=== PATIENT | female | born 1945 | race Caucasian/White ===

== ENCOUNTER 2017-11-30 14:02 | Emergency (ER) | payer MEDICARE, OTHER ==
--- NOTE | 2017-11-30 14:06 | ER Report ---
History and Physical Time Seen By MD: 14:06 (BRIAN MNÉDEZ MD) HPI/ROS CHIEF COMPLAINT: Left shoulder; thoracic and lumbar pain HISTORY OF PRESENT ILLNESS: Patient is a 72-year-old female who presents with complaint of left shoulder pain as well as lower thoracic and lumbar pain after a fall today. Patient states she was at her cabin in [facility]. She was trying to get her to dog to come inside. She states that she was wearing bedroom slippers and slipped on the kitchen floor. She landed on her abducted left shoulder. She has pain with range of motion and pain to the proximal humerus. She also states that she felt her "spine slip out of place". Is complaining of thoracic and lumbar pain. She apparently has a history of grade 3 spondylolisthesis. She denies any numbness or tingling. Denies striking her head or any neck pain. REVIEW OF SYSTEMS Respiratory: No cough, no dyspnea. Cardiovascular: No chest pain, no palpitations. Gastrointestinal: No vomiting, no abdominal pain. Musculoskeletal: thoracic/lumbar back pain; right shoulder pain (BRIAN MÉNDEZ MD) Allergies: Coded Allergies: No Known Drug Allergies (Unverified , 11/30/17) Home Meds Active Scripts Hydrocodone Bit/Acetaminophen (NORCO 5-325 TABLET) 1 Each Tablet, 1 EACH PO Q4- 6H Y for PAIN, #21 TAB Prov:AUNG RBICE DO 11/30/17 Past Medical/Surgical History Grade 3 lumbar spondylolisthesis. (BRIAN MÉNDEZ MD) Constitutional Vital Sign - Last 24 Hours 11/30/17 14:15 Temp 97.6 Pulse 73 Resp 16 B/P (MAP) 139/57 Pulse Ox 94 (AUNG BRICE V DO) Physical Exam General Appearance: The patient is alert, has no immediate need for airway protection and no current signs of toxicity. Eyes: Pupils equal and round no injection. Respiratory: Chest is non tender, lungs are clear to auscultation. Cardiac: regular rate and rhythm Gastrointestinal: Abdomen is soft and non tender, no masses, bowel sounds normal. Musculoskeletal: Neck: Neck is supple and non tender. Extremities: Patient was noted to have painless active range of motion of both shoulders and particularly the left shoulder. When patient was sitting on the gurney she was using both arms to prop herself up and hold off her thorax seemingly without pain. Initially palpated the clavicle humerus and elbow seemingly without discomfort. When I began to passively range the shoulder she complained of severe pain to the proximal left humerus and acromioclavicular joint. She also is complaining of thoracic and lumbar pain. Palpation of the spinous processes from cervical through lumbar spine revealed no acute tenderness or step-off. Skin: No rashes or lesions. (BRIAN MÉNDEZ MD) Medical Decision Making Data Points Laboratory Hematology Test 11/30/17 14:18 Urine Color Yellow Urine Clarity Slightly-cloudy Urine pH 6.0 pH (4.8-9.5) Urine Specific [place] 1.011 Urine Protein Negative mg/dL (NEGATIVE) Urine Glucose (UA) Negative mg/dL (NEGATIVE) Urine Ketones Negative mg/dL (NEGATIVE) Urine Blood Negative (NEGATIVE) Urine Nitrite Negative (NEGATIVE) Urine Bilirubin Negative (NEGATIVE) Urine Urobilinogen Negative mg/dL (0.2-1.9) Urine Leukocyte Esterase Moderate (NEGATIVE) Urine RBC <1 /HPF (0-2/HPF) Urine WBC 9 /HPF (0-5/HPF) Urine Squamous Epithelial Cells Many /LPF (</=FEW) Urine Bacteria Few /HPF (NONE-FEW) Urine Mucus None /HPF (NONE-FEW) Chemistry Test 11/30/17 14:18 Urine Color Yellow Urine Clarity Slightly-cloudy Urine pH 6.0 pH (4.8-9.5) Urine Specific Marion 1.011 Urine Protein Negative mg/dL (NEGATIVE) Urine Glucose (UA) Negative mg/dL (NEGATIVE) Urine Ketones Negative mg/dL (NEGATIVE) Urine Blood Negative (NEGATIVE) Urine Nitrite Negative (NEGATIVE) Urine Bilirubin Negative (NEGATIVE) Urine Urobilinogen Negative mg/dL (0.2-1.9) Urine Leukocyte Esterase Moderate (NEGATIVE) Urine RBC <1 /HPF (0-2/HPF) Urine WBC 9 /HPF (0-5/HPF) Urine Squamous Epithelial Cells Many /LPF (</=FEW) Urine Bacteria Few /HPF (NONE-FEW) Urine Mucus None /HPF (NONE-FEW) Urinalysis Test 11/30/17 14:18 Urine Color Yellow Urine Clarity Slightly-cloudy Urine pH 6.0 pH (4.8-9.5) Urine Specific Marion 1.011 Urine Protein Negative mg/dL (NEGATIVE) Urine Glucose (UA) Negative mg/dL (NEGATIVE) Urine Ketones Negative mg/dL (NEGATIVE) Urine Blood Negative (NEGATIVE) Urine Nitrite Negative (NEGATIVE) Urine Bilirubin Negative (NEGATIVE) Urine Urobilinogen Negative mg/dL (0.2-1.9) Urine Leukocyte Esterase Moderate (NEGATIVE) Urine RBC <1 /HPF (0-2/HPF) Urine WBC 9 /HPF (0-5/HPF) Urine Squamous Epithelial Cells Many /LPF (</=FEW) Urine Bacteria Few /HPF (NONE-FEW) Urine Mucus None /HPF (NONE-FEW) (AUNG BRICE DO) EKG/Imaging Imaging + left compacted humerus fx. severe Spondolithesis of lumbar spine. (AUNG BRICE DO) ED Course/Re-evaluation ED Course 11/30/2017 2:25:38 pm plan at this time will be x-ray of the left shoulder, left clavicle, thoracic and lumbar spines. We will give IM Toradol for pain. Decision to Disposition Date: Nov 30, 2017 Decision to Disposition Time: 17:00 (BRIAN MÉNDEZ MD) ED Course 11/30/2017 4:37:02 pm Pt signed out to me pending official reading of xrays. Reviewed xrays with pt. Pt was aware of the spondolithesis and arthritis. States it was a grade 3-4 on prior exams. Pt has also fx her left humerus in the past but radiologist is calling it new and pt does have pain. Will place in imobilizer. Will also make a copy of her images since she wants to follow up with orthopedics in either [place] or [place]. Pt is also requesting a urine to be sent however she is currently a febrile and has no dysuria. 11/30/2017 5:10:55 pm PTs urine is back and is contaminated by many squamous cells. Pt is asymptomatic so I do not want to treat on contaminated urine. Spoke with pt and at length. She states she did not use the wipes to clean her area when obtaining the specimen "i was in too much pain with the shoulder". Offered to recollect a specimen but pt states she would like to go home now and can follow up as outpt. "i dont have any symptoms from my urine. I just thought i would get it checked since the nurse collected it when i arrived". Told to follow up [facility] pcp if develops dysuria or fevers. Decision to Disposition Date: Nov 30, 2017 Decision to Disposition Time: 17:13 (AUNG BRICE DO) Depart Departure Latest Vital Signs Vital Signs Date Time Temp Pulse Resp B/P (MAP) Pulse Ox O2 Delivery O2 Flow Rate FiO2 11/30/17 14:15 97.6 73 16 139/57 94 (AUNG BRICE DO) Impression: Primary Impression: Humerus lesion, left Additional Impressions: Spondylisthesis Osteoarthritis Condition: Condition Unchanged Disposition: HOME OR SELF-CARE Referrals: [facility] New Scripts Hydrocodone Bit/Acetaminophen (NORCO 5-325 TABLET) 1 Each Tablet 1 EACH PO Q4-6H Y for PAIN, #21 TAB Prov: AUNG BRICE DO 11/30/17 Patient Instructions: Proximal Humerus Fracture (GEN), Spondylolisthesis (GEN) Additional Instructions: Your xrays today show an new fracture of your proximal humerus. You also have significant spondylotic changes in your lumbar spine and diffuse arthritis. Keep your arm in the splint until you are seen by orthopedics. Motrin (advil, ibuprofen) 400mg every 6 hours as needed for pain Hydrocodone with tylenol 1-2 pills every 4-6 hours as needed for pain. Problem Qualifiers Additional Impressions: Spondylisthesis Spinal region: lumbar Qualified Codes: M43.16 - Spondylolisthesis, lumbar region Osteoarthritis Osteoarthritis location: multiple joints Osteoarthritis type: primary Qualified Codes: M15.0 - Primary generalized (osteo)arthritis BRIAN MÉNDEZ MD Nov 30, 2017 14:06 AUNG BRICE DO Nov 30, 2017 16:38
[2017-11-30 14:15] VITALS: BP 139/57
[2017-11-30] MEDS ORDERED: KETOROLAC 60 MG/2 ML VIAL IM ONE (14:15)
--- NOTE | 2017-11-30 15:58 | RADIOLOGY IMAGING REPORT ---
FACILITY: [facility] PATIENT NAME: Susan Nguyen : 1945 MR: [id number] V: [id number] EXAM DATE: ORDERING PHYSICIAN: BRIAN MÉNDEZ TECHNOLOGIST: Location: [facility] Patient: Susan Nguyen : 1945 Visit/Account:[id number] Date of Sevice: 11/30/2017 Two views left shoulder Indication: Fall Comparison: Unavailable Findings: There is a mildly impacted fracture through the surgical neck left humerus. Fracture lucency extends out through the region of the greater tuberosity. Alignment is anatomic at the glenohumeral joint. The ribs and clavicles are unremarkable. IMPRESSION: 1. Mildly impacted fracture involving the surgical neck and head left humerus. Report Dictated By: Carmelo Shoemaker MD at 11/30/2017 3:53 PM Report E-Signed By: Carmelo Shoemaker MD at 11/30/2017 3:54 PM WSN:[email or web address]
--- NOTE | 2017-11-30 15:59 | RADIOLOGY IMAGING REPORT ---
FACILITY: [facility] PATIENT NAME: Susan Nguyen : 1945 MR: [id number] V: [id number] EXAM DATE: ORDERING PHYSICIAN: BRIAN MÉNDEZ TECHNOLOGIST: Location: [facility] Patient: Susan Nguyen : 1945 Visit/Account:[id number] Date of Sevice: 11/30/2017 LUMBAR SPINE 2 OR 3 VIEW HISTORY: COMPARISON: None. FINDINGS: Two views of the lumbar spine are submitted. Mild left curvature, apex L3 vertebra. The frontal pro jection demonstrates amorphous nonspecific calcification seen just inferior to the T12 vertebra. In maximum dimension measures approximately 1.05 cm and may represent calyceal stone. Lateral view demo nstrates severe spondylotic changes at L3-L4 with complete loss of disc space, increased endplate scl erosis of the L4 vertebra and endplate spurring. The mild anterior wedging of L4 is likely from radiotelegraphist buck degenerative change. There is grade 2, 1.3 cm anterolisthesis of L3 on L4 with findings suspicio us for a pars defect at this level. Mild, symmetric degenerative changes seen in the SI joints. Mild disc narrowing is seen at L4-L5 and L5-S1. Mild lower lumbar facet arthrosis. IMPRESSION: 1. There is severe spondylotic changes L3-L4 with grade 2 anterolisthesis of L3 on L4 likely from a pars defect at this level. 2. Mild spondylotic narrowing L4-L5 and L5-S1 3. Mild lower lumbar facet arthrosis. 4. Frontal projection demonstrates incidental finding of left hemiabdomen calcification which is ronn picious for left-sided nephrolithiasis Report Dictated By: Carmelo Shoemaker MD at 11/30/2017 3:50 PM Report E-Signed By: Carmelo Shoemaker MD at 11/30/2017 3:53 PM WSN:[email or web address]
--- NOTE | 2017-11-30 16:00 | RADIOLOGY IMAGING REPORT ---
FACILITY: [facility] [place] PATIENT NAME: Susan Nguyen : 1945 MR: [id number] V: [id number] EXAM DATE: ORDERING PHYSICIAN: BRIAN MÉNDEZ TECHNOLOGIST: Location: [facility] Patient: Susan Nguyen : 1945 Visit/Account:[id number] Date of Sevice: 11/30/2017 2 views left clavicle Indication: Fall Comparison: None available Findings: There is a comminuted, mildly impacted fracture involving the neck and lateral head left humerus. Tw o views of the clavicle demonstrate no acute fracture. A.c. and CC joints are within normal limits. The left ribs are without acute finding. IMPRESSION: No acute osseous abnormality left clavicle. Impacted, comminuted fracture proximal left humerus Report Dictated By: Carmelo Shoemaker MD at 11/30/2017 3:54 PM Report E-Signed By: Carmelo Shoemaker MD at 11/30/2017 3:55 PM WSN:[email or web address]
--- NOTE | 2017-11-30 16:01 | RADIOLOGY IMAGING REPORT ---
FACILITY: [facility] PATIENT NAME: uSsan Nguyen : 1945 MR: [id number] V: [id number] EXAM DATE: ORDERING PHYSICIAN: BRIAN MÉNDEZ TECHNOLOGIST: Location: [facility] Patient: Susan Nguyen : 1945 Visit/Account:[id number] Date of Sevice: 11/30/2017 Exam type: THORACIC SPINE 3 VIEWS History: fall Comparison: None. Findings: There is a gentle levoconvex scoliosis of the thoracolumbar spine. Mild to moderate multilevel spond ylotic changes most prominent in the midthoracic spine and visualized lower cervical spine. There is no evidence of acute fracture or subluxation seen. Incidentally noted are coarse calcifications pro jecting over the upper abdomen IMPRESSION: 1. Spondylotic changes of the cervical and thoracic spine although no evidence of acute fracture or subluxation in the thoracic spine seen Coarse calcifications project over the upper abdomen could be within the kidneys clinical correlation needed Report Dictated By: Shonda Dugan MD at 11/30/2017 3:55 PM Report E-Signed By: Shonda Dugan MD at 11/30/2017 3:57 PM WSN:[email or web address]
[2017-11-30] MEDS ORDERED: HYDR-4309 PO (16:32)
[2017-11-30] MEDS ORDERED: ACET/HYDROC 5/325MG TH ER ONLY 2 TAB/BOTTLE PO ONE (17:10)
== END 2017-11-30 17:24 | disposition home or self-care (01) ==
LOC: ER 14:11
DX: S42.392A Other fracture of shaft of left humerus, initial encounter for closed fracture (principal); M43.16 Spondylolisthesis, lumbar region; M15.0 Primary generalized (osteo)arthritis; W18.30XA Fall on same level, unspecified, initial encounter
CPT/HCPCS: 72072; 72100; 73000; 73030; 81001; 96372; 99284; A4565; J1885